=== PATIENT | male | born 1990 | race Caucasian/White ===

== ENCOUNTER 2020-10-01 23:33 | Emergency (ER) | payer OTHER ==
[~2020-10-01] VITALS: Ht 162.6 cm; Wt 72.6 kg
[2020-10-01 23:39] VITALS: BP 149/102; Ht 162.6 cm; Wt 72.6 kg
== END 2020-10-02 02:03 ==
LOC: ED 23:33
DX: S00.81XA Abrasion of other part of head, initial encounter (principal); M54.2 Cervicalgia; V49.49XA Driver injured in collision with other motor vehicles in traffic accident, initial encounter; Y93.I9 Activity, other involving external motion; Y92.488 Other paved roadways as the place of occurrence of the external cause; Y99.8 Other external cause status

== ENCOUNTER 2020-10-01 23:33 | Emergency (ER) | payer OTHER | END 2020-10-02 02:03 | LOC: ED 23:33 | DX: Z02.89 Encounter for other administrative examinations (principal) ==